=== PATIENT | female | born 1965 | race Caucasian/White ===

== ENCOUNTER → 2017-06-01 | Outpatient (CLI) | payer OTHER ==
--- NOTE | 2017-06-01 10:03 | Diagnostic Imaging Report ---
Ultrasound-guided thyroid biopsy June 01, 2017 Pre-Procedure Diagnosis: Right thyroid nodule Post-procedure Diagnosis:Right thyroid nodule Diamond Die Polisher: Balwinder Batista Erp Engineer: None Sedation: None. 1% lidocaine local anesthesia. Estimate blood loss: <5 mL Blood administered: None Complications: None Implants/Grafts: None Specimen: 25-gauge needle biopsy x 4; 25-gauge needle biopsy x 1. Procedure: Informed consent was obtained and the patient positioned supine in the ultrasound suite. A timeout was performed, followed by preliminary ultrasound of the thyroid. The neck was prepped and draped in standard sterile fashion. Using real-time ultrasound guidance a 25-gauge needle was advanced into the thyroid nodule of interest. An image was stored in the electronic medical record. The sample was submitted to pathology for adequacy review. The procedure was repeated an additional 3 times, using identical technique with image capture for the medical record. Then, a 22-gauge needle was advanced into the thyroid nodule of interest under ultrasound guidance. At the end of the procedure a sterile dressing was applied. Findings: 1.5 cm cystic nodule within the right thyroid nodule containing inspissated colloid. Impression: Successful ultrasound-guided right thyroid nodule needle biopsy. This report was generated with voice-recognition technology. Errors in floor runner can occur. Please interpret accordingly and contact a radiologist if there are any questions regarding the report. Signed by: Dr. Romeo Batista M.D. on 06/01/2017 10:00 AM
== END ==
LOC: US 07:40
PROVIDERS: ATTEND Internal Medicine
DX: E03.9 Hypothyroidism, unspecified (principal)
CPT/HCPCS: 10022; 76942; 88172; 88173